=== PATIENT | female | born 1980 | race Caucasian/White ===

== ENCOUNTER → 2018-05-28 | Outpatient (CLI) | payer OTHER, SELFPAY ==
[2018-05-28 13:04] LABS: ALBUMIN 3.8 GM/DL (3.2-5.2); BLOOD UREA NITROGEN 7 MG/DL (7-18); CALCIUM LEVEL 8.9 MG/DL (8.5-10.1); CARBON DIOXIDE LEVEL 27 MEQ/L (21-32); CHLORIDE LEVEL 104 MEQ/L (98-107); CREATININE FOR GFR 0.75 MG/DL (0.55-1.30); GLOMERULAR FILTRATION RATE > 60.0 (>60); GLUCOSE, FASTING 81 MG/DL (70-100); PHOSPHORUS LEVEL 3.3 MG/DL (2.5-4.9); POTASSIUM SERUM 4.2 MEQ/L (3.5-5.1); SODIUM LEVEL 141 MEQ/L (136-145)
== END ==
LOC: M WUC 10:10
PROVIDERS: ATTEND Physician Assistant
DX: R30.0 Dysuria (principal); N39.3 Stress incontinence (female) (male)

== ENCOUNTER → 2018-06-06 | Outpatient (CLI) | payer OTHER ==
--- NOTE | 2018-06-06 15:17 | REP ---
Chest x-ray: Two views. History: Chest heaviness. . Comparison study: No comparison . Findings: The lungs are well inflated and free of infiltrate. The pleural angles are sharp. The heart size is normal. Pulmonary vasculature is not increased. No significant bony abnormality is seen. Impression: Negative chest x-ray. Electronically Signed by Kirk Keyes MD 06/06/2018 03:09 P
== END ==
LOC: M LRY 14:23
PROVIDERS: ATTEND Nurse Practitioner Family
DX: R07.89 Other chest pain (principal)

== ENCOUNTER → 2018-06-06 | Outpatient (CLI) | payer OTHER ==
--- NOTE | 2018-06-06 21:18 | REP ---
Clinical: Dysuria and stress incontinence. Technique: Real time martin scale ultrasound examination using curved array transducer. Findings: The bilateral kidneys are normal in contour, size, echogenicity, and reniform shape without hydronephrosis, nephrolithiasis, cystic or renal mass lesion. Right kidney measures 11.2 x 5.2 x 4.6 cm. Left kidney measures 11.0 x 4.7 x 4.4 cm. Bladder is normal in appearance without wall thickening or mass lesion. Bilateral ureteral jets are identified. Prevoid bladder measures 742 ml. Postvoid bladder measures 26 ml. Postvoid residual equals 3.5%. Impression: Normal renal and bladder ultrasound. Electronically Signed by Thomas Lopez MD 06/06/2018 09:09 P
== END ==
LOC: M LRY 14:43
PROVIDERS: ATTEND Physician Assistant
DX: N39.3 Stress incontinence (female) (male) (principal); R30.0 Dysuria

== ENCOUNTER → 2018-06-06 | Outpatient (REF) | payer OTHER | LOC: M SFHCLERA 14:25 | PROVIDERS: ATTEND Nurse Practitioner Family | DX: J02.9 Acute pharyngitis, unspecified (principal) ==

== ENCOUNTER 2019-11-14 14:10 | Emergency (ER) | payer OTHER ==
[~2019-11-14] VITALS: Ht 162.6 cm; Wt 78.0 kg
[2019-11-14] MEDS ORDERED: CIPR500T3 (14:26)
[2019-11-14] MEDS ORDERED: ONDA-83 PO (14:26)
[2019-11-14] MEDS ORDERED: AMPH1CAP16 (14:26)
[2019-11-14] MEDS ORDERED: NS 1,000 ML IV ONE (15:15)
[2019-11-14 16:09] LABS: BASO # 0.1 10^3/uL (0.0-0.2); BASO % 0.4 % (0.0-1.0); EOS # 0.2 10^3/uL (0.0-0.5); EOS % 1.4 % (0.0-3.0); HEMATOCRIT 50.8 % (36.0-47.0); HEMOGLOBIN 17.2 g/dl (12.0-15.5); LYMPH # 2.8 10^3/uL (1.5-5.0); LYMPH % 20.6 % (24.0-44.0); MEAN CORPUSCULAR HEMOGLOBIN 28.8 pg (27.0-33.0); MEAN CORPUSCULAR HGB CONC 33.9 g/dl (32.0-36.5); MEAN CORPUSCULAR VOLUME 84.9 fl (80.0-96.0); MONO # 0.9 10^3/uL (0.0-0.8); MONO % 6.4 % (0.0-5.0); NEUTROPHILS # 9.5 10^3/uL (1.5-8.5); NEUTROPHILS % 70.8 % (36.0-66.0); PLATELET COUNT, AUTOMATED 353 10^3/uL (150-450); RED BLOOD COUNT 5.98 10^6/uL (4.00-5.40); WHITE BLOOD COUNT 13.4 10^3/uL (4.0-10.0)
[2019-11-14 16:19] LABS: ALBUMIN 4.5 GM/DL (3.2-5.2); ALT/SGPT 22 U/L (12-78); AMYLASE 36 U/L (25-115); BILIRUBIN,DIRECT 0.2 MG/DL (0.0-0.2); BILIRUBIN,TOTAL 0.5 MG/DL (0.2-1.0); BLOOD UREA NITROGEN 8 MG/DL (7-18); CALCIUM LEVEL 10.1 MG/DL (8.5-10.1); CARBON DIOXIDE LEVEL 33 MEQ/L (21-32); CHLORIDE LEVEL 99 MEQ/L (98-107); CREATININE FOR GFR 0.91 MG/DL (0.55-1.30); FERRITIN 53 NG/ML (8-252); FREE T4 1.28 NG/DL (0.76-1.46); GLOMERULAR FILTRATION RATE > 60.0 (>60); GLUCOSE, FASTING 92 MG/DL (70-100); LIPASE 215 U/L (73-393); POTASSIUM SERUM 3.5 MEQ/L (3.5-5.1); SODIUM LEVEL 136 MEQ/L (136-145); TOTAL PROTEIN 8.4 GM/DL (6.4-8.2)
[2019-11-14 16:21] LABS: HCG, SERUM QUALITATIVE NEGATIVE (NEGATIVE)
[2019-11-14] MEDS ORDERED: ISOVUE-370 76% 100ML VIAL As Ordered ONE (16:55)
[2019-11-14] MEDS ORDERED: PANTOPRAZOLE 40MG VIAL (C9113 PER 1) IV ONE (17:00)
[2019-11-14] MEDS ORDERED: KETOROLAC 30 MG/ML 1ML VIAL IV ONE (17:00)
[2019-11-14] MEDS ORDERED: METOCLOPRAMIDE INJ 10MG/2ML VIAL (J2765 PER 1) IV ONE (17:00)
--- NOTE | 2019-11-14 17:28 | REPVR ---
PROCEDURE INFORMATION: Exam: CT Abdomen And Pelvis With Contrast Exam date and time: 11/14/2019 5:00 PM Age: 39 years old Clinical indication: Nausea and vomiting; Abdominal pain; Generalized; Additional info: N/v/d, diffuse abd pain TECHNIQUE: Imaging protocol: Computed tomography of the abdomen and pelvis with intravenous contrast. Radiation optimization: All CT scans at this facility use at least one of these dose optimization techniques: automated exposure control; mA and/or kV adjustment per patient size (includes targeted exams where dose is matched to clinical indication); or iterative reconstruction. Contrast material: ISOVUE 370; Contrast volume: 100 ml; Contrast route: INTRAVENOUS (IV); COMPARISON: US RENAL ULTRASOUND 06/06/2018 3:49 PM FINDINGS: Liver: There is mild diffuse decrease in hepatic parenchymal density, consistent with steatosis. Several small benign appearing hepatic lucencies measuring under 1 cm likely represent cysts. Gallbladder and bile ducts: There has been a cholecystectomy. Pancreas: Normal. No ductal dilation. Spleen: The spleen demonstrates punctate calcifications, consistent with remote granulomatous organism exposure. Adrenals: Normal. No mass. Kidneys and ureters: Normal. No hydronephrosis. Stomach and bowel: Mild mural stratification demonstrated in the mid and distal left hemicolon with a suggestion of minimal pericolonic inflammation. Colon is also collapsed. Findings may be related to nondistention although clinical correlation to exclude segmental colitis suggested. Appendix: No evidence of appendicitis. Intraperitoneal space: There is minimal fluid in the cul-de-sac most likely physiologic. Clinical correlation to exclude other causes of cul-de-sac fluid suggested. Vasculature: Unremarkable. No abdominal aortic aneurysm. Lymph nodes: Unremarkable. No enlarged lymph nodes. Bladder: Unremarkable as visualized. Reproductive: Unremarkable as visualized. Bones/joints: Lumbarization of the 1st sacral segment. Bilateral facet joint arthropathy L5-S1. Soft tissues: Bilateral mastectomies and breast reconstruction with implants. There is a small umbilical hernia. There is no evidence of incarceration. IMPRESSION: 1. There is mild diffuse decrease in hepatic parenchymal density, consistent with steatosis. 2. There has been a cholecystectomy. 3. Mild mural stratification demonstrated in the mid and distal left hemicolon with a suggestion of minimal pericolonic inflammation. Colon is also collapsed. Findings may be related to nondistention although clinical correlation to exclude segmental colitis suggested. Electronically signed by: Justin Doherty On 11/14/2019 17:28:00 PM
--- NOTE | 2019-11-14 17:54 | ECGEPIP ---
[facility] - ED Test Date: 2019-11-14 Pat Name: NAEL HERNANDEZ Department: Room: - Gender: Female Climbing Guide: : 1980 Requested By: ELISA Ndiaye PA-C Order Number: [id number] Reading MD: Mary Watson Measurements Intervals [place] Rate: 84 P: 44 IA: 154 QRS: -6 QRSD: 101 T: 25 QT: 364 QTc: 430 Interpretive Statements SINUS RHYTHM No prior Electronically Signed on 11-14-2019 17:53:55 EDT by Mary Watson
[2019-11-14] MEDS ORDERED: REGL10TA6 PO (19:49)
[2019-11-14 20:14] VITALS: BP 130/90
--- NOTE | 2019-11-17 10:04 | ED PDOC ---
Post-Departure Follow-Up ft sanjuana dorsey faxed formal report of ct abd/p for fu Melissa Oliveira MD Nov 17, 2019 10:04
== END 2019-11-14 20:16 | disposition home or self-care (01) ==
LOC: M ED 14:10 → EEVIPCON 14:10 → M ED 20:16
DX: K52.9 Noninfective gastroenteritis and colitis, unspecified (principal); K76.0 Fatty (change of) liver, not elsewhere classified; R35.0 Frequency of micturition; J02.9 Acute pharyngitis, unspecified; H92.09 Otalgia, unspecified ear; R51 Headache; F90.9 Attention-deficit hyperactivity disorder, unspecified type; Z87.440 Personal history of urinary (tract) infections; Z88.5 Allergy status to narcotic agent; Z79.899 Other long term (current) drug therapy; Z79.02 Long term (current) use of antithrombotics/antiplatelets
CPT/HCPCS: 36415; 74177; 80048; 80076; 81001; 82150; 82728; 83605; 83690; 84439; 84443; 84703; 85025; 87040; 87486; 87581; 87633; 87798; 87880; 93005; 96361; 96374; 96375; 99284; C9113; J1885; J2765; Q9967

== ENCOUNTER → 2019-11-17 | Outpatient (REF) | payer OTHER ==
[~2019-11-17] MED LIST: AMPH1CAP16; CIPR500T3; ONDA-83 PO; REGL10TA6 PO
== END ==
LOC: M LAB REF 18:21
PROVIDERS: ATTEND Physician Assistant
DX: Z00.00 Encounter for general adult medical examination without abnormal findings (principal)